=== PATIENT | male | born 1960 | race Native Hawaiian/Other Pacific Islander ===

== ENCOUNTER 2021-02-26 10:44 | Outpatient (CLI) | payer OTHER ==
[~2021-02-26] VITALS: Ht 170.2 cm; Wt 93.0 kg
== END 2021-02-26 22:00 | disposition home or self-care (01) ==
LOC: INF 10:44
PROVIDERS: ATTEND Family Medicine
DX: Z23 Encounter for immunization (principal); U07.1 COVID-19
CPT/HCPCS: 96365; M0244